=== PATIENT | female | born 1970 | race Hispanic/Latino ===

== ENCOUNTER 2017-09-30 09:38 | Emergency (ER) | payer BC ==
[2017-09-30 09:45] VITALS: PULSE 72; O2SAT 99
--- NOTE | 2017-09-30 10:07 | ED PDOC ---
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 Pt states she tripped over an outdoor speaker wire in her backyard, landing on her hands and knees. She sustained minor abrasions but has pronounced pain and difficulty with right wrist flexion and forearm pronation. She has been wearing a rigid wrist brace but states she takes it off while sleeping. Denies tingling or loss of sensation , loss of motor function, head trauma, LOC, or any other complaints at this time. Time/Duration: Prior to Arrival Symptom Onset: Sudden Past Medical History - Provider Review Nursing Documentation Reviewed: Yes - Travel History Have you recently traveled outside [place] w/in the past 3 mons?: No - Cardiac Hx Cardiac Disorders: No - Pulmonary Hx Respiratory Disorders: No - Neurological Hx Neurological Disorder: No - HEENT Hx HEENT Disorder: No - Renal Hx Renal Disorder: No - Endocrine/Metabolic Hx Endocrine Disorders: No - Hematological/Oncological Hx Blood Disorders: No - Integumentary Hx Dermatological Disorder: No - Musculoskeletal/Rheumatological Hx Musculoskeletal Disorders: Yes Hx Back Pain: Yes - Gastrointestinal Hx Gastrointestinal Disorders: No - Genitourinary/Gynecological Hx Genitourinary Disorders: No - Psychiatric Hx Psychophysiologic Disorder: No Hx Substance Use: No Family/Social History - Physician Review Nursing Documentation Reviewed: Yes Family/Social History: Unknown Family HX Smoking Status: Current Some Days Smoker Hx Alcohol Use: No Hx Substance Use: No Allergies/Home Meds Allergies/Adverse Reactions: Allergies shellfish derived Allergy (Verified 09/30/17 09:41) SWELLING Home Medications: Home Meds Medication Instructions Recorded Confirmed Unobtainable 09/30/17 09/30/17 Review of Systems - Review of Systems Constitutional: Normal Eyes: Normal ENT: Normal Respiratory: Normal Cardiovascular: Normal Gastrointestinal: Normal Genitourinary Female: Normal Musculoskeletal: Normal, Joint Swelling (right wrist, bilateal knees and left hip) Skin: Normal Neurological: Normal. absent: Headache Endocrine: Normal Hemo/Lymphatic: Normal Psychiatric: Normal Physical Exam Vital Signs Reviewed: Yes Vital Signs Temp Pulse Resp BP Pulse Ox 09/30/17 12:15 98.1 F 72 16 122/72 99 09/30/17 12:13 72 17 122/72 99 09/30/17 09:41 98.3 F 72 16 130/77 99 Temperature: Afebrile Blood Pressure: Normal Pulse: Regular Respiratory Rate: Normal Appearance: Positive for: Well-Appearing, Non-Toxic, Comfortable Pain Distress: Mild Mental Status: Positive for: Alert and Oriented X 3 - Systems Exam Head: Present: Atraumatic, Normocephalic Neck: Present: Normal Range of Motion. No: MIDLINE TENDERNESS, Paraspinal Tenderness Respiratory/Chest: Present: Clear to Auscultation, Good Air Exchange. No: Respiratory Distress, Accessory Muscle Use, Wheezes, Decreased Breath Sounds, Rales, Retracting, Rhonchi, Tachypneic, Tender to Palpation, Other Cardiovascular: Present: Regular Rate and Rhythm, Normal S1, S2. No: Murmurs Abdomen: Present: Normal Bowel Sounds. No: Tenderness, Distention, Peritoneal Signs, Rebound, Guarding, McBurney's Point Tender, Rovsing's Sign Present, Hernias, Feeding Tubes, Ostomy Tubes, Mass/Organomegaly, Scars, Other Back: Present: Normal Inspection Upper Extremity: Present: Normal Inspection, Normal ROM (bilateral wrists R>L limited d/t pain and stiffness), NORMAL PULSES, Tenderness (bilateral wrists R>L ), Neurovascularly Intact, Capillary Refill < 2s. No: Cyanosis, Edema, Swelling , Erythema, Temperature Abnormalties, Deformity Lower Extremity: Present: Normal Inspection. No: Edema Neurological: Present: GCS=15, CN II-XII Intact, Speech Normal Skin: Present: Warm, Dry, Normal Color. 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 Plan Right wrist and forearm XR to r/o fracture or dislocation assess and dispo Progress Note 09/30/17 12:50 IMPRESSION: Unremarkable radiographs of the right forearm. and wrist Pt will continue wearing wrist brace, ice, rest and take NSAIDs as needed f/u with orthopedist if pain and weakness continues past 3 days - RAD Interpretation Narrative RAD Interpretations (Text): 09/30/17 11:27 Right Wrist XR: BONES: Normal. No fracture. JOINTS: Normal. No dislocation. SOFT TISSUES: Normal. OTHER FINDINGS: None. IMPRESSION: Normal right wrist radiographs. 09/30/17 12:49 IMPRESSION: Unremarkable radiographs of the right forearm. Radiology Orders: 09/30/17 10:00 WRIST, RIGHT 3 VIEWS [RAD] Stat 09/30/17 10:10 FOREARM RIGHT [RAD] Stat Disposition/Present on Arrival - Present on Arrival Any Indicators Present on Arrival: Yes History of DVT/PE: No History of Uncontrolled Diabetes: No Urinary Catheter: No History of Decub. Ulcer: No History Surgical Site Infection Following: None - Disposition Have Diagnosis and Disposition been Completed?: Yes Diagnosis: Sprain of wrist, right Disposition: HOME/ ROUTINE Disposition Time: 12:49 Patient Plan: Discharge Condition: GOOD Discharge Instructions (ExitCare): Wrist Sprain (DC) Forms: [employer] (German)
--- NOTE | 2017-09-30 10:19 | RAD ---
PROCEDURE: Right Wrist Radiographs. HISTORY: Fall COMPARISON: None. FINDINGS: BONES: Normal. No fracture. JOINTS: Normal. No dislocation. SOFT TISSUES: Normal. OTHER FINDINGS: None. IMPRESSION: Normal right wrist radiographs.
--- NOTE | 2017-09-30 11:57 | RAD ---
PROCEDURE: Radiographs of the Right Forearm HISTORY: Fall COMPARISON: None available. TECHNIQUE: Frontal and lateral views obtained. FINDINGS: BONES: No fracture or destructive lesion. JOINT SPACES: Unremarkable. OTHER FINDINGS: None. IMPRESSION: Unremarkable radiographs of the right forearm.
[2017-09-30 12:14] VITALS: BP 122/72
[2017-09-30 18:05] VITALS: RESP 16; TEMP 98.1
== END 2017-09-30 12:15 | disposition home or self-care (01) ==
LOC: ED 09:38
DX: S63.501A Unspecified sprain of right wrist, initial encounter (principal); W01.0XXA Fall on same level from slipping, tripping and stumbling without subsequent striking against object, initial encounter; Y92.096 Garden or yard of other non-institutional residence as the place of occurrence of the external cause